=== PATIENT | female | born 1995 | race Caucasian/White ===

== ENCOUNTER 2018-06-22 12:25 | Emergency (ER) | payer OTHER ==
[~2018-06-22] VITALS: Ht 170.2 cm; Wt 51.7 kg
[2018-06-22 12:29] VITALS: BP 117/61
--- NOTE | 2018-06-22 12:32 | NUR ---
PATIENT AMBULATED TO BED 10
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
--- NOTE | 2018-06-22 13:00 | NUR ---
DR. DAVIS AT BEDSIDE EVALUATING PATIENT.
[2018-06-22] MEDS ORDERED: BACITRACIN OINT 500 UNITS/GM PKT TP ONE (13:05)
--- NOTE | 2018-06-22 13:31 | NUR ---
Patient discharged with v/s stable. Written and verbal after care instructions given and explained. Patient alert, oriented and verbalized understanding of instructions. Ambulatory with steady gait. All questions addressed prior to discharge. ID band removed. Patient advised to follow up with PMD. Rx of BACITRACIN 500 UNIT/G given. Patient educated on indication of medication including possible reaction and side effects. Opportunity to ask questions provided and answered.
[2018-06-22 13:35] VITALS: BP 111/60
== END 2018-06-22 13:31 | disposition home or self-care (01) ==
LOC: MED 12:25
DX: S91.202A Unspecified open wound of left great toe with damage to nail, initial encounter (principal); W22.8XXA Striking against or struck by other objects, initial encounter; Y93.89 Activity, other specified; Y92.89 Other specified places as the place of occurrence of the external cause; Y99.8 Other external cause status
CPT/HCPCS: 99283

== ENCOUNTER 2021-02-01 12:55 | Emergency (ER) | payer OTHER ==
[~2021-02-01] VITALS: Ht 170.2 cm; Wt 53.1 kg
[2021-02-01 12:59] VITALS: BP 140/90
--- NOTE | 2021-02-01 13:02 | NUR ---
PT SENT TO LOBBY
--- NOTE | 2021-02-01 13:25 | NUR ---
PT'S LAC CLEANED AND IRRIGATED WITH NORMAL SALINE
[2021-02-01] MEDS ORDERED: ACETAMINOPHEN EXTRA STRENGTH 500 MG TAB PO ONE (13:35)
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
--- NOTE | 2021-02-01 14:04 | NUR ---
Patient discharged with v/s stable. Written and verbal after care instructions given and explained. Patient verbalized understanding. Ambulatory with steady gait. All questions addressed prior to discharge. Advised to follow up with PMD.
== END 2021-02-01 14:04 | disposition home or self-care (01) ==
LOC: MED 12:55
DX: S61.211A Laceration without foreign body of left index finger without damage to nail, initial encounter (principal); W26.0XXA Contact with knife, initial encounter; Y93.89 Activity, other specified; Y92.89 Other specified places as the place of occurrence of the external cause; Y99.8 Other external cause status
CPT/HCPCS: 12001; 99282